=== PATIENT | female | born 1960 | race Caucasian/White ===

== ENCOUNTER 2017-02-14 20:16 | Emergency (ER) | payer OTHER ==
[~2017-02-14] VITALS: Ht 167.6 cm; Wt 124.5 kg
[~2017-02-14 20:16] MED LIST: CETI10CA PO; GUAI-637 PO; IBUP100T46 PO; IBUP400T22 PO; UDROBAC PO
[2017-02-14 20:21] VITALS: Ht 167.6 cm; Wt 124.5 kg
[2017-02-14] MEDS ORDERED: IBUP-1542 PO (20:31)
[2017-02-14] MEDS ORDERED: POLY10DR19 LEFT EYE (20:31)
[2017-02-14] MEDS ORDERED: AZIT250T94 PO (20:31)
[2017-02-14] MEDS ORDERED: CETI10CA PO (20:31)
[2017-02-14] MEDS ORDERED: GUAI120S26 PO (20:31)
[2017-02-14] MEDS ORDERED: ALBU8.5H3 INH (20:31)
--- NOTE | 2017-02-14 20:48 | ERD ---
ER Documentation Chief Complaint Date/Time DATE: 02/14/17 TIME: 20:46 Chief Complaint left eye redness; cough for a week; HPI 57-year-old female presents here in emergency department for complaint of left eye redness and purulent discharge and is started 2 days ago. Patient also has been having dry cough, has been having cough for the last one week. Patient does not cough up any phlegm or blood. Patient has been having wheezing episodes at times. Patient denies any fever or chills. Patient denies any sore throat or ear pain. Patient denies any trauma in the eye. Patient denies any vision changes. Patient did not take any medications. Patient denies any chest pain or palpitations. Patient denies any dizziness. ROS All systems reviewed and are negative except as per history of present illness. Medications Home Meds Active Scripts Polymyxin B Sulfate-TMP* (Polymyxin B-TMP Eye Drops*) 10 Ml Drops, 2 DROP LEFT EYE QID for 7 Days, EA Prov:JUAN RODRIGUEZ NP 02/14/17 Azithromycin* (Zithromax*) 250 Mg Tablet, 250 MG PO .ZPACK DIRECTED, #6 TAB TAKE 500 MG (2 TABS) THE FIRST DAY THEN 250 MG (1 TAB) DAYS 2-5 Prov:JUAN RODRIGUEZ NP 02/14/17 Albuterol Sulfate* (Proair HFA*) 8.5 Gm Hfa.aer.ad, 2 PUFF INH Q4H Y for WHEEZING AND SOB, #1 INHALER Prov:JUAN RODRIGUEZ NP 02/14/17 Ibuprofen* (Motrin*) 600 Mg Tab, 600 MG PO Q6H Y for PAIN AND OR ELEVATED TEMP, #30 TAB Prov:JUAN RODRIGUEZ NP 02/14/17 Cetirizine Hcl* (Zyrtec*) 10 Mg Capsule, 10 MG PO DAILY, #30 TAB.CHEW Prov:JUAN RODRIGUEZ NP 02/14/17 Vzejcqfajyt-K-Xsqmkmvlpx Hb* (Guaifenesin* DM Syrup) 120 Ml Syrup, 10 ML PO Q4H Y for COUGH, #120 ML Prov:JUAN RODRIGUEZ NP 02/14/17 Guaifenesin-Codeine Phosphate* (Robitussin* AC) 5 Ml Syrup, 10 ML PO Q6H Y for COUGH, #120 ML Prov:HUSSAIN PATTERSON MD 06/29/16 Cetirizine Hcl* (Zyrtec*) 10 Mg Capsule, 10 MG PO DAILY, #30 TAB Prov:HUSSAIN PATTERSON MD 06/29/16 Ibuprofen* (Motrin*) 400 Mg Tab, 400 MG PO Q6H Y for PAIN AND OR ELEVATED TEMP, #30 TAB Prov:HUSSAIN PATTERSON MD 06/29/16 Reported Medications Guaifenesin* (Robitussin*) 100 Mg/5 Ml Syrup, 200 MG PO Q6H Y for COUGH, ML 06/29/16 Ibuprofen* (Ibuprofen*) 100 Mg Tab.chew, 200 MG PO Q6 Y for PAIN, TAB.CHEW 06/29/16 Allergies Allergies: Coded Allergies: Penicillins (Verified Allergy, Unknown, 06/29/16) PMhx/Soc History of Surgery: Yes (Rt arm surgery) Anesthesia Reaction: No Hx Neurological Disorder: No Hx Cardiac Disorders: Yes (HTN) Hx Psychiatric Problems: Yes (bipolar) Hx Miscellaneous Medical Probl: No Hx Alcohol Use: No Hx Substance Use: No Hx Tobacco Use: No FmHx Family History: No coronary disease, No diabetes, No other Physical Exam Vitals Vital Signs Date Time Temp Pulse Resp B/P Pulse Ox O2 Delivery O2 Flow Rate FiO2 02/14/17 20:21 98.9 77 20 180/100 98 Physical Exam GENERAL: The patient is well developed and appropriate for usual state of health, in no apparent distress. HEENT: Atraumatic. Left eye conjunctiva noted to be erythematous with purulent discharge. Bilateral eyes are PERRL EOM intact. Ears: Normal tympanic membrane, no erythema or bulging. No ear canal swelling. No ear discharge. Nose: normal nasal turbinates, no erythema or swelling. Normal nasal discharge. Throat: oropharynx clear. No tonsillar swelling or tonsillar exudates. No lymphadenopathy. CHEST: Clear to auscultation bilaterally. There are no rales, wheezes or rhonchi. HEART: Regular rate and rhythm. No murmurs, clicks, rubs or gallops. No S3 or S4. ABDOMEN: Soft, nontender and nondistended. Good bowel sounds. No rebound or guarding. No gross peritonitis. No gross organomegaly or masses. No Worrell sign or McBurney point tenderness. BACK: No midline or flank tenderness. EXTREMITIES: Equal pulses bilaterally. There is no peripheral clubbing, cyanosis or edema. No focal swelling or erythema. Full range of motion. Grossly neurovascularly intact. NEURO: Alert and oriented. Cranial nerves 2-12 intact. Motor strength in all 4 extremities with 5/5 strength. Sensation grossly intact. Normal speech and gait. SKIN: There is no apparent rash or petechia. The skin is warm and dry. HEMATOLOGIC AND LYMPHATIC: There is no evidence of excessive bruising or lymphedema. No gross cervical, axillary, or inguinal lymphadenopathy. Procedures/MDM Medical Decision Making: Patient symptoms are most likely consistent with acute bronchitis most likely from atypical infection. Patient by conjunctivitis , bacterial in origin. No symptoms of any eye emergencies, no symptoms of any acute closed angle glaucoma, retinal detachment, does not have any vision changes. Patient did not have any foreign body sensation in the eye.. There is low suspicion for Pneumonia at this time since patients lungs sounds are clear, patient O2 saturation is normal and patient doesnt show any respiratory distress. Radiology exams not indicated at this time. There is low suspicion for other cardiopulmonary emergencies at this time such as CHF, Pulmonary Embolism, Pneumothorax, or any other cardiopulmonary emergencies at this time. There is low suspicion for sepsis. Patient appears well and is hemodynamically stable. Fever is controlled with medicines. Disposition: Home. Condition: Stable Prescriptions: Azithromycin, albuterol, Zyrtec, guaifenesin DM, ibuprofen, Polytrim eyedrops Instructions: Patient is advised to take medications as prescribed. Patient is advised to rest. Patient advised to increase fluid intake, do humidifier at home and if possible, do salt water gargles. Patient is advised that if symptoms are worse, shortness of breath, uncontrolled fever, stridor, vomiting, worst signs and symptoms to return to emergency department immediately. Otherwise, patient is advised to follow up with primary doctor in 5-7 days. Departure Diagnosis: Primary Impression: Bacterial conjunctivitis of left eye Additional Impression: Acute bronchitis Bronchitis organism: unspecified organism Qualified Code: J20.9 - Acute bronchitis, unspecified organism Condition: Stable Patient Instructions: Acute Bronchitis, Conjunctivitis, Bacterial CUISIA,JUAN Garcia [employer] [employer] Feb 14, 2017 20:48
== END 2017-02-14 20:31 | disposition home or self-care (01) ==
LOC: FTE 20:16 → E/R 20:31
DX: H10.022 Other mucopurulent conjunctivitis, left eye (principal); J20.9 Acute bronchitis, unspecified; I10 Essential (primary) hypertension
CPT/HCPCS: 99284

== ENCOUNTER 2019-05-09 16:53 | Emergency (ER) | payer OTHER ==
[~2019-05-09] VITALS: Ht 160 cm; Wt 119.2 kg
[~2019-05-09 16:53] MED LIST changes: +ALBU8.5H8 INH; +AMLO-218 PO; +AZIT250T PO; +CEPH-443 PO; +CODE5LIQ2 PO; +GUAI120S25 PO; +IBUP-1542 PO; +IBUP-1561 PO; +IBUP100T3 PO; -IBUP100T46 PO; -IBUP400T22 PO; +POLY10DR19 LEFT EYE; -UDROBAC PO
[2019-05-09 17:05] VITALS: Ht 160 cm; Wt 119.2 kg
[2019-05-09] MEDS ORDERED: KETOROLAC 15 MG INJ IV STA (20:49)
[2019-05-09] MEDS ORDERED: CEPHALEXIN 500 MG CAP PO ONE (21:00)
[2019-05-09 21:07] VITALS: BP 180/95; PULSE 75; RESP 19
== END 2019-05-09 21:17 | disposition home or self-care (01) ==
LOC: E/R 16:53
DX: I10 Essential (primary) hypertension (principal); R30.0 Dysuria
CPT/HCPCS: 71045; 80053; 81001; 81003; 83880; 84484; 85025; 96374; J1885; Z7502; Z7610; 93005